=== PATIENT | female | born 1995 | race Caucasian/White ===

== ENCOUNTER 2017-06-17 23:55 | Emergency (ER) | payer BC ==
[~2017-06-17] VITALS: Ht 152.4 cm; Wt 70.4 kg
[2017-06-17 23:56] VITALS: BP 131/81
--- NOTE | 2017-06-18 01:03 | REP ---
Clinical: Pain. Technique: AP, lateral, bilateral oblique views of the right knee. Findings: Osseous structures, joint spaces, and surrounding soft tissues are relatively normal for age. No acute fracture dislocation. No obvious congenital or significant degenerative changes are appreciated. No effusion identified. No subcutaneous emphysema or radiodense foreign body. Impression: Relatively normal right knee radiographs. Signed by Enoch Hua MD 06/18/2017 12:55 A
== END 2017-06-18 01:09 | disposition home or self-care (01) ==
LOC: M ED 23:55
DX: S80.01XA Contusion of right knee, initial encounter (principal); W19.XXXA Unspecified fall, initial encounter; Y92.099 Unspecified place in other non-institutional residence as the place of occurrence of the external cause; Y93.89 Activity, other specified; Y99.9 Unspecified external cause status

== ENCOUNTER 2017-07-14 08:48 | Emergency (ER) | payer BC ==
[~2017-07-14] VITALS: Ht 152.4 cm; Wt 70.5 kg
[2017-07-14 08:49] VITALS: BP 128/95
[2017-07-14] MEDS ORDERED: IBUP-1022 PO (09:02)
[2017-07-14] MEDS ORDERED: NORCOTAB PO (09:19)
[2017-07-14] MEDS ORDERED: CLEO300C2 PO (09:19)
[2017-07-14] MEDS ORDERED: LIDOCAINE VISCOUS 2% SOLN 15ML UDC MT ONE (09:30)
== END 2017-07-14 09:39 | disposition home or self-care (01) ==
LOC: M ED 08:48
DX: K04.7 Periapical abscess without sinus (principal); R05 Cough; J01.90 Acute sinusitis, unspecified

== ENCOUNTER 2017-07-16 08:19 | Emergency (ER) | payer BC ==
[~2017-07-16] VITALS: Ht 152.4 cm; Wt 68.8 kg
[~2017-07-16 08:19] MED LIST: CLEO300C2 PO; IBUP-1022 PO; NORCOTAB PO
[2017-07-16] MEDS ORDERED: MORPHINE 4 MG/ML 1ML SYRINGE IV ONE ×2 (09:00→12:45)
[2017-07-16] MEDS ORDERED: NS 500 ML IV ONE (09:00)
[2017-07-16 09:38] LABS: BASO % 0.1 % (0.0-1.0); IMMATURE GRANULOCYTE % 0.4 % (0-0); LYMPH # 1.9 10^3/uL (1.5-6.5); LYMPH % 17.6 % (24.0-44.0); MEAN CORPUSCULAR HEMOGLOBIN 29.8 pg (27.0-33.0); MEAN CORPUSCULAR HGB CONC 35.3 g/dl (32.0-36.5); MEAN CORPUSCULAR VOLUME 84.3 fl (80.0-96.0); MONO # 1.1 10^3/uL (0.0-0.8); NEUTROPHILS # 7.8 10^3/uL (1.8-7.7); NEUTROPHILS % 71.9 % (36.0-66.0); PLATELET COUNT, AUTOMATED 202 10^3/uL (150-450); RED CELL DISTRIBUTION WIDTH 12.7 % (11.5-14.5); WHITE BLOOD COUNT 10.9 10^3/uL (4.0-10.0)
[2017-07-16 09:49] LABS: ANION GAP 9 MEQ/L (8-16); BLOOD UREA NITROGEN 11 MG/DL (7-18); CALCIUM LEVEL 9.3 MG/DL (8.5-10.1); CARBON DIOXIDE LEVEL 24 MEQ/L (21-32); CHLORIDE LEVEL 105 MEQ/L (98-107); CREATININE FOR GFR 1.16 MG/DL (0.55-1.02); GLOMERULAR FILTRATION RATE > 60.0 (>60); GLUCOSE, FASTING 93 MG/DL (70-105); POTASSIUM SERUM 3.6 MEQ/L (3.5-5.1); SODIUM LEVEL 138 MEQ/L (136-145)
[2017-07-16] MEDS ORDERED: ISOVUE-370 76% 100ML VIAL (Q9967) As Ordered ONE (10:24)
[2017-07-16 10:32] LABS: ERYTHROCYTE SEDIMENTATION RATE 10 mm/hr (0-20)
--- NOTE | 2017-07-16 11:37 | REP ---
MAXILLOFACIAL CT WITHOUT CONTRAST: HISTORY: Right periorbital cellulitis. Minimal mucosal thickening is present in the right maxillary sinus. The remaining sinuses are clear. The osteomeatal units are patent. The middle and inferior nasal turbinates are partially paradoxical. There is minimal deviation at the nasal septum to the right posteriorly and to the left anteriorly. The cribriform plate, medial gonzalez of the orbits and optic canals are intact. The globes, optic nerves and rectus muscles are normal in appearance. There is no orbital lesion. Periapical lucency is present involving two incisor teeth of the maxilla. There is disruption of the overlying buccal cortex. This represents periodontal disease. Soft tissue swelling is present along the buccal surface of the anterior maxilla. A 9 mm hypodensity is present anterior to the right maxilla incisors that may represent a small abscess. Soft tissue swelling is present anterior to the right maxillary sinus and orbit. . IMPRESSION: 1. Sinus mucosal thickening as described above. 2. There is soft tissue thickening along the anterior maxilla consistent with a phlegmon. A small 9 mm hypodensity is present that may represent an abscess. Signed by Jensen Harvey MD 07/16/2017 11:52 A
[2017-07-16] MEDS ORDERED: KETOROLAC 30 MG/ML VIAL (J1885) IV ONE (12:45)
[2017-07-16 17:51] VITALS: BP 124/77
== END 2017-07-16 17:52 | disposition short-term general hospital (02) ==
LOC: M ED 08:19
DX: K04.7 Periapical abscess without sinus (principal); L03.211 Cellulitis of face
CPT/HCPCS: 70487; 80048; 85025; 85652; 86140; 96374; 96375; 96376; 99284; J1885; Q9967

== ENCOUNTER 2017-08-09 16:31 | Emergency (ER) | payer BC ==
[~2017-08-09] VITALS: Ht 152.4 cm; Wt 70.5 kg
[2017-08-09 17:30] LABS: BASO % 0.2 % (0.0-1.0); EOS % 0.1 % (0.0-3.0); IMMATURE GRANULOCYTE % 0.3 % (0-0); LYMPH # 2.1 10^3/uL (1.5-6.5); LYMPH % 16.6 % (24.0-44.0); MEAN CORPUSCULAR HEMOGLOBIN 29.5 pg (27.0-33.0); MEAN CORPUSCULAR VOLUME 84.2 fl (80.0-96.0); MONO # 1.2 10^3/uL (0.0-0.8); MONO % 9.2 % (0.0-5.0); NEUTROPHILS # 9.3 10^3/uL (1.8-7.7); NEUTROPHILS % 73.6 % (36.0-66.0); PLATELET COUNT, AUTOMATED 199 10^3/uL (150-450); RED CELL DISTRIBUTION WIDTH 12.6 % (11.5-14.5); WHITE BLOOD COUNT 12.6 10^3/uL (4.0-10.0)
[2017-08-09 17:45] LABS: CONTROL LINE MONO INT CTR LINE PRESENT
[2017-08-09 17:53] LABS: ALBUMIN 3.6 GM/DL (3.2-5.2); ALBUMIN/GLOBULIN RATIO 0.72 (1.00-1.93); ALKALINE PHOSPHATASE 82 U/L (45-117); ALT/SGPT 29 U/L (12-78); AST/SGOT 23 U/L (7-37); BILIRUBIN,DIRECT 0.1 MG/DL (0.0-0.2); BILIRUBIN,TOTAL 0.6 MG/DL (0.2-1.0); TOTAL PROTEIN 8.6 GM/DL (6.4-8.2)
[2017-08-09] MEDS ORDERED: CLEO300C2 PO (17:57)
[2017-08-09] MEDS ORDERED: CEPA5.4L2 MT (17:57)
[2017-08-09] MEDS ORDERED: CLINDAMYCIN 150 MG CAP PO ONE (18:00)
[2017-08-09 18:02] VITALS: BP 119/72
[2017-08-09] MEDS ORDERED: FLUC150T PO (18:14)
== END 2017-08-09 18:16 | disposition home or self-care (01) ==
LOC: M ED 16:31
DX: J02.9 Acute pharyngitis, unspecified (principal)

== ENCOUNTER → 2018-01-06 | Outpatient (REF) | payer BC ==
[2018-01-06 18:07] LABS: THYROXINE (T4) 11.6 UG/DL (4.5-12.0)
== END ==
LOC: M LAB REF 16:40
DX: Z12.4 Encounter for screening for malignant neoplasm of cervix (principal)
CPT/HCPCS: 84443

== ENCOUNTER 2018-01-17 20:41 | Emergency (ER) | payer BC ==
[2018-01-17] MEDS: GI COCKTAIL 50ML BTL(HYOSCYAMINE/MAALOX/LIDOCAINE VISCOUS)(1:3:1) PO (22:16)
[2018-01-17] MEDS: NS 1,000 ML IV (22:23)
[2018-01-17 22:30] LABS: KETONE, URINE AUTO RFX NEGATIVE (NEGATIVE); LEUKOCYTE ESTERASE UR AUTO RFX NEGATIVE (NEGATIVE); MUCUS, URINE RFX SMALL (NEGATIVE); NITRITE, URINE AUTO RFX NEGATIVE (NEGATIVE); RBC, URINE AUTO RFX 3 /HPF (0-3); SQUAM EPITHELIAL CELL UR AURFX 0 /HPF (0-6); WBC, URINE AUTO RFX 0 /HPF (0-3)
[2018-01-17 22:32] LABS: BASO % 0.2 % (0.0-1.0); EOS # 0.1 10^3/uL (0.0-0.50); EOS % 0.9 % (0.0-3.0); HEMATOCRIT 42.4 % (36.0-47.0); HEMOGLOBIN 14.6 g/dl (12.0-15.5); IMMATURE GRANULOCYTE % 0.4 % (0-3.0); LYMPH # 3.2 10^3/uL (1.5-6.5); MEAN CORPUSCULAR HEMOGLOBIN 29.3 pg (27.0-33.0); MEAN CORPUSCULAR HGB CONC 34.4 g/dl (32.0-36.5); MEAN CORPUSCULAR VOLUME 85.1 fl (80.0-96.0); MONO # 0.8 10^3/uL (0.0-0.8); MONO % 7.1 % (0.0-5.0); NEUTROPHILS % 62.4 % (36.0-66.0); PLATELET COUNT, AUTOMATED 281 10^3/uL (150-450); RED BLOOD COUNT 4.98 10^6/uL (4.00-5.40); RED CELL DISTRIBUTION WIDTH 13.1 % (11.5-14.5); WHITE BLOOD COUNT 11.2 10^3/uL (4.0-10.0)
[2018-01-17 23:00] LABS: ALBUMIN 3.8 GM/DL (3.2-5.2); ALBUMIN/GLOBULIN RATIO 0.95 (1.00-1.93); ALKALINE PHOSPHATASE 93 U/L (45-117); ALT/SGPT 19 U/L (12-78); ANION GAP 8 MEQ/L (8-16); AST/SGOT 16 U/L (7-37); BILIRUBIN,DIRECT < 0.1 MG/DL (0.0-0.2); BILIRUBIN,TOTAL 0.2 MG/DL (0.2-1.0); BLOOD UREA NITROGEN 6 MG/DL (7-18); CALCIUM LEVEL 8.1 MG/DL (8.5-10.1); CARBON DIOXIDE LEVEL 26 MEQ/L (21-32); CHLORIDE LEVEL 108 MEQ/L (98-107); CREATININE FOR GFR 0.79 MG/DL (0.55-1.30); GLOMERULAR FILTRATION RATE > 60.0 (>60); GLUCOSE, FASTING 81 MG/DL (70-100); LIPASE 129 U/L (73-393); POTASSIUM SERUM 3.6 MEQ/L (3.5-5.1); SODIUM LEVEL 142 MEQ/L (136-145); TOTAL PROTEIN 7.8 GM/DL (6.4-8.2)
[2018-01-17] MEDS ORDERED: ISOVUE-370 76% 100ML VIAL (Q9967) As Ordered (23:12)
== END 2018-01-18 00:01 | disposition home or self-care (01) ==
LOC: M ED 01-18 00:01
DX: N83.201 Unspecified ovarian cyst, right side (principal); R10.84 Generalized abdominal pain; F32.9 Major depressive disorder, single episode, unspecified; K21.9 Gastro-esophageal reflux disease without esophagitis; Z72.0 Tobacco use; Z79.899 Other long term (current) drug therapy; Z88.0 Allergy status to penicillin
CPT/HCPCS: Q9967

== ENCOUNTER 2018-10-10 02:39 | Emergency (ER) | payer BC ==
[~2018-10-10] VITALS: Ht 152.4 cm; Wt 65.9 kg
[2018-10-10 02:39] VITALS: BP 149/75
[~2018-10-10 02:39] MED LIST changes: +CEPA5.4L2 MT; +FLUC150T PO; +OMEP40CA2 PO; +PRENCHW PO; +ZOLO100T PO
[2018-10-10] MEDS ORDERED: FLUO20CA19 PO (02:47)
== END 2018-10-10 03:36 | disposition left against medical advice (07) ==
LOC: M ED 02:39
DX: Z53.21 Procedure and treatment not carried out due to patient leaving prior to being seen by health care provider (principal)

== ENCOUNTER → 2018-10-15 | Outpatient (REF) | payer BC ==
[~2018-10-15] MED LIST changes: +BACT800T5 PO; +FLUO20CA19 PO; +MAGICMW SSP; +TESS100C PO
== END ==
LOC: M LAB REF 16:19
PROVIDERS: ATTEND Family Medicine Addiction Medicine
DX: R35.0 Frequency of micturition (principal)

== ENCOUNTER 2018-10-16 16:32 | Emergency (ER) | payer BC ==
[~2018-10-16] VITALS: Ht 152.4 cm; Wt 68.2 kg
[~2018-10-16 16:32] MED LIST changes: -BACT800T5 PO; -MAGICMW SSP; -TESS100C PO
[2018-10-16] MEDS ORDERED: BACT800T5 PO (16:40)
[2018-10-16 17:41] LABS: INFLUENZA A AMPLIFICATION NEGATIVE (NEGATIVE); INFLUENZA B AMPLIFICATION NEGATIVE (NEGATIVE)
[2018-10-16 18:53] VITALS: BP 125/80
[2018-10-16] MEDS ORDERED: MAGICMW SSP (20:21)
[2018-10-16] MEDS ORDERED: TESS100C PO (20:21)
--- NOTE | 2018-10-17 10:18 | REP ---
CHEST PA AND LATERAL: 10/16/2018. CLINICAL HISTORY: Productive cough. FINDINGS: No prior study. Two views are provided. The lungs are marginally adequate in the degree of inflation. There is no pleural effusion or dense consolidation. The heart, mediastinal and hilar contours are normal. The aorta and airway are intact. Bony thorax shows no focal lesion. No free air under the diaphragm. IMPRESSION: 1. No acute infiltrate, effusion, cardiomegaly, edema, or other significant finding. Electronically Signed by Kalpesh Smith MD 10/17/2018 11:33 A
== END 2018-10-16 20:35 | disposition home or self-care (01) ==
LOC: M ED 16:32
DX: J02.9 Acute pharyngitis, unspecified (principal); K21.9 Gastro-esophageal reflux disease without esophagitis; F32.9 Major depressive disorder, single episode, unspecified; F17.210 Nicotine dependence, cigarettes, uncomplicated; Z88.0 Allergy status to penicillin

== ENCOUNTER 2019-03-05 14:59 | Emergency (ER) | payer BC, MEDICAID ==
[~2019-03-05] VITALS: Ht 152.4 cm; Wt 68.2 kg
[~2019-03-05 14:59] MED LIST changes: +BACT800T5 PO; +HYDR-3715 PO; +MAGICMW SSP; -NORCOTAB PO; +TESS100C PO
[2019-03-05] MEDS ORDERED: IBUP-1022 (15:05)
[2019-03-05] MEDS ORDERED: CLIN300C5 (15:05)
[2019-03-05] MEDS ORDERED: diphenhydrAMINE INJ 50MG/ML VIAL (J1200) IV ONE (15:15)
[2019-03-05] MEDS ORDERED: FAMOTIDINE INJ 20MG/2ML VIAL (S0028) IVP ONE (15:15)
[2019-03-05] MEDS ORDERED: NS 1,000 ML IV ONE (15:15)
[2019-03-05] MEDS ORDERED: methylPREDNISolone INJ 125 MG/2 ML VIAL (J2930) IV ONE (15:15)
[2019-03-05] MEDS ORDERED: PEPC1TAB5 PO (15:54)
[2019-03-05] MEDS ORDERED: PRED20TA PO (15:54)
[2019-03-05] MEDS ORDERED: BENA25CA4 PO (15:54)
[2019-03-05 16:00] VITALS: BP 122/57
== END 2019-03-05 16:17 | disposition home or self-care (01) ==
LOC: M ED 14:59
DX: R21 Rash and other nonspecific skin eruption (principal); T78.49XA Other allergy, initial encounter; X58.XXXA Exposure to other specified factors, initial encounter; Y92.89 Other specified places as the place of occurrence of the external cause; Z79.899 Other long term (current) drug therapy; Z88.0 Allergy status to penicillin; F17.210 Nicotine dependence, cigarettes, uncomplicated
CPT/HCPCS: 93041; 94760; 96374; 96375; 99284; J1200; J2930

== ENCOUNTER → 2020-08-07 | Outpatient (REF) | payer MEDICAID, OTHER ==
[~2020-08-07] MED LIST changes: +BENA25CA4 PO; +CLIN300C6; -FLUO20CA19 PO; +FLUO20CA22 PO; +IBUP-1022; -OMEP40CA2 PO; +OMEP40CA97 PO; +PEPC1TAB5 PO; +PRED20TA PO
[2020-08-07 11:40] LABS: AMORPHOUS SEDIMENT SMALL (NEGATIVE); APPEARANCE, URINE HAZY (CLEAR); BACTERIA, URINE AUTO NEGATIVE (NEGATIVE); BILIRUBIN, URINE AUTO NEGATIVE (NEGATIVE); BLOOD, URINE BLOOD NEGATIVE (NEGATIVE); COLOR, URINE YELLOW (YELLOW); GLUCOSE, URINE (UA) AUTO NEGATIVE (NEGATIVE); KETONE, URINE AUTO NEGATIVE (NEGATIVE); LEUKOCYTE ESTERASE, URINE AUTO NEGATIVE (NEGATIVE); MUCUS, URINE SMALL (NEGATIVE); NITRITE, URINE AUTO NEGATIVE (NEGATIVE); PROTEIN, URINE AUTO NEGATIVE (NEGATIVE); RBC, URINE AUTO 1 /HPF (0-3); SPECIFIC GRAVITY URINE AUTO 1.023 (1.002-1.035); SQUAMOUS EPITHELIAL CELL UR AU 4 /HPF (0-6); UROBILINOGEN, URINE AUTO 0.2 mg/dL (0.0-2.0); WBC, URINE AUTO 1 /HPF (0-3)
[2020-08-07 12:30] LABS: ALBUMIN 3.6 GM/DL (3.2-5.2); ALT/SGPT 33 U/L (12-78); BILIRUBIN,TOTAL 0.2 MG/DL (0.2-1.0); BLOOD UREA NITROGEN 8 MG/DL (7-18); CALCIUM LEVEL 8.8 MG/DL (8.5-10.1); CARBON DIOXIDE LEVEL 26 MEQ/L (21-32); CHLORIDE LEVEL 108 MEQ/L (98-107); CHOLESTEROL LEVEL 188 MG/DL (<200); CHOLESTEROL RISK RATIO 6.064 (<5); CREATININE FOR GFR 0.81 MG/DL (0.55-1.30); FREE T4 0.99 NG/DL (0.76-1.46); GLOMERULAR FILTRATION RATE > 60.0 (>60); GLUCOSE, FASTING 94 MG/DL (70-100); HDL CHOLESTEROL 31 MG/DL (>40); LDL CHOLESTEROL 122 MG/DL (<100); NON-HDL-C 157 MG/DL; POTASSIUM SERUM 3.7 MEQ/L (3.5-5.1); SODIUM LEVEL 137 MEQ/L (136-145); TOTAL PROTEIN 7.3 GM/DL (6.4-8.2); TRIGLYCERIDES LEVEL 176 MG/DL (<150)
[2020-08-07 12:39] LABS: TOTAL 25(OH) VITAMIN D 15.6 NG/ML (30.0-100.0)
== END ==
LOC: M LAB REF 10:58
PROVIDERS: ATTEND Nurse Practitioner Family
DX: F41.8 Other specified anxiety disorders (principal); Z13.9 Encounter for screening, unspecified; F17.210 Nicotine dependence, cigarettes, uncomplicated; K21.9 Gastro-esophageal reflux disease without esophagitis

== ENCOUNTER 2022-06-03 17:27 | Emergency (ER) | payer OTHER ==
[~2022-06-03] VITALS: Ht 152.4 cm; Wt 77.4 kg
[2022-06-03 17:27] VITALS: BP 124/82
[~2022-06-03 17:27] MED LIST changes: +CLIN-250; -CLIN300C6; -FLUC150T PO; +FLUC150T9 PO; +OMEP40CA4 PO; -OMEP40CA97 PO
[2022-06-03 18:44] LABS: RSV AMPLIFICATION NEGATIVE (NEGATIVE)
[2022-06-03] MEDS ORDERED: BENZONATATE 100MG CAPSULE PO ONE (20:40)
[2022-06-03] MEDS ORDERED: KETOROLAC 60MG 2ML VIAL IM ONE (20:40)
[2022-06-03] MEDS ORDERED: PSEUDOEPHEDRINE 30 MG TAB PO STA (20:40)
[2022-06-03] MEDS ORDERED: PSEU120T19 PO (20:42)
[2022-06-03] MEDS ORDERED: BENZ200C70 PO (20:42)
== END 2022-06-03 21:26 | disposition home or self-care (01) ==
LOC: M ED 17:27
DX: U07.1 COVID-19 (principal); Z88.0 Allergy status to penicillin
CPT/HCPCS: 87631; 96372; 99282; J1885

== ENCOUNTER 2022-07-30 20:43 | Emergency (ER) | payer OTHER ==
[~2022-07-30] VITALS: Ht 149.9 cm; Wt 75.0 kg
[~2022-07-30 20:43] MED LIST changes: +BENZ200C70 PO; +PSEU120T19 PO
[2022-07-30] MEDS ORDERED: BUPR150T12 PO (20:50)
[2022-07-30] MEDS ORDERED: IBUPROFEN 600MG TAB PO ONE (21:55)
[2022-07-30 22:03] VITALS: BP 144/97
== END 2022-07-30 22:09 | disposition home or self-care (01) ==
LOC: M ED 20:43
DX: S90.32XA Contusion of left foot, initial encounter (principal); W22.8XXA Striking against or struck by other objects, initial encounter; Y92.239 Unspecified place in hospital as the place of occurrence of the external cause; Y99.0 Civilian activity done for income or pay; F41.9 Anxiety disorder, unspecified; F32.9 Major depressive disorder, single episode, unspecified; K21.9 Gastro-esophageal reflux disease without esophagitis; F17.200 Nicotine dependence, unspecified, uncomplicated; Z79.899 Other long term (current) drug therapy; Z88.0 Allergy status to penicillin

== ENCOUNTER → 2022-08-06 | Outpatient (CLI) | payer OTHER ==
[~2022-08-06] MED LIST changes: +BUPR150T12 PO
== END ==
LOC: M SOG 09:28
PROVIDERS: ATTEND Orthopaedic Surgery Adult Reconstructive Orthopaedic Surgery
DX: M79.672 Pain in left foot (principal)

== ENCOUNTER 2022-11-12 21:52 | Emergency (ER) | payer OTHER ==
[~2022-11-12] VITALS: Ht 152.4 cm; Wt 79.5 kg
[2022-11-12 21:53] VITALS: BP 139/90
[2022-11-12] MEDS ORDERED: diphenhydrAMINE 50MG CAP PO ONE (22:05)
== END 2022-11-12 23:52 | disposition left against medical advice (07) ==
LOC: M ED 21:52
DX: Z53.21 Procedure and treatment not carried out due to patient leaving prior to being seen by health care provider (principal)

== ENCOUNTER → 2022-11-18 | Outpatient (REF) | payer OTHER ==
[2022-11-18 17:57] LABS: HEMOGLOBIN A1c 5.3 % (4.0-6.0)
[2022-11-18 17:58] LABS: BASO # 0.1 10^3/uL (0.0-0.2); BASO % 0.4 % (0.0-1.0); EOS # 0.2 10^3/uL (0.0-0.5); EOS % 1.6 % (0.0-3.0); HEMATOCRIT 43.6 % (36.0-47.0); HEMOGLOBIN 14.6 g/dl (12.0-15.5); LYMPH % 35.7 % (24.0-44.0); MEAN CORPUSCULAR HEMOGLOBIN 29.5 pg (27.0-33.0); MEAN CORPUSCULAR HGB CONC 33.5 g/dl (32.0-36.5); MEAN CORPUSCULAR VOLUME 88.1 fl (80.0-96.0); MONO # 1.1 10^3/uL (0.0-0.8); MONO % 7.7 % (2.0-8.0); NEUTROPHILS # 7.5 10^3/uL (1.5-8.5); PLATELET COUNT, AUTOMATED 254 10^3/uL (150-450); RED BLOOD COUNT 4.95 10^6/uL (4.00-5.40); WHITE BLOOD COUNT 13.9 10^3/uL (4.0-10.0)
[2022-11-18 18:11] LABS: ALBUMIN 3.6 G/DL (3.2-5.2); ALKALINE PHOSPHATASE 89 U/L (46-116); ALT/SGPT 40 U/L (7.0-40); AST/SGOT 22 U/L (<34); BILIRUBIN,TOTAL 0.2 MG/DL (0.3-1.2); BLOOD UREA NITROGEN 11 MG/DL (9-23); CALCIUM LEVEL 9.1 MG/DL (8.5-10.1); CARBON DIOXIDE LEVEL 29 MMOL/L (20-31); CHLORIDE LEVEL 104 MMOL/L (98-107); CHOLESTEROL LEVEL 166 MG/DL (<200); CHOLESTEROL RISK RATIO 4.88 (<5); CREATININE FOR GFR 0.78 MG/DL (0.55-1.30); GLOMERULAR FILTRATION RATE > 60.0 (>60); GLUCOSE, FASTING 87 MG/DL (60-100); POTASSIUM SERUM 4.1 MMOL/L (3.5-5.1); SODIUM LEVEL 140 MMOL/L (136-145); TOTAL PROTEIN 6.9 G/DL (5.7-8.2); TRIGLYCERIDES LEVEL 260 MG/DL (<150)
[2022-11-18 18:13] LABS: THYROID STIMULATING HORMONE 3.971 uIU/ML (0.55-4.78)
[2022-11-18 18:14] LABS: TOTAL 25(OH) VITAMIN D 14.6 NG/ML (20.0-100.0)
== END ==
LOC: M LAB REF 16:12
PROVIDERS: ATTEND Nurse Practitioner Family
DX: Z13.228 Encounter for screening for other metabolic disorders (principal)

== ENCOUNTER → 2023-10-29 | Outpatient (REF) | payer OTHER, MEDICAID | LOC: M LAB REF 17:27 | PROVIDERS: ATTEND Nurse Practitioner Family | DX: Z12.4 Encounter for screening for malignant neoplasm of cervix (principal) ==